=== PATIENT | male | born 1990 | race African-American/Black ===

== ENCOUNTER 2017-09-20 16:12 | Emergency (ER) | payer SELFPAY ==
[~2017-09-20] VITALS: Ht 175.3 cm; Wt 67.3 kg
[2017-09-20 16:35] VITALS: Ht 175.3 cm; Wt 67.3 kg
[2017-09-20] MEDS ORDERED: TORADOL10 MG PO (18:14)
[2017-09-20 19:17] VITALS: BP 146/79
== END 2017-09-20 19:19 | disposition home or self-care (01) ==
LOC: D.ER 16:12
DX: S93.401A Sprain of unspecified ligament of right ankle, initial encounter (principal); X50.1XXA Overexertion from prolonged static or awkward postures, initial encounter; Y93.67 Activity, basketball; Y92.019 Unspecified place in single-family (private) house as the place of occurrence of the external cause; F17.200 Nicotine dependence, unspecified, uncomplicated

== ENCOUNTER 2017-12-09 23:04 | Emergency (ER) | payer SELFPAY ==
[~2017-12-09] VITALS: Ht 175.3 cm; Wt 70.5 kg
[~2017-12-09 23:04] MED LIST: TORADOL10 MG PO
[2017-12-09 23:13] VITALS: Ht 175.3 cm; Wt 70.5 kg
[2017-12-10] MEDS ORDERED: ZOFRAN4 MG PO (00:10)
[2017-12-10 00:27] VITALS: BP 117/83
== END 2017-12-10 00:28 | disposition home or self-care (01) ==
LOC: D.ER 23:04
DX: R51 Headache (principal); R11.2 Nausea with vomiting, unspecified

== ENCOUNTER 2017-12-23 11:41 | Emergency (ER) | payer SELFPAY ==
[~2017-12-23] VITALS: Ht 175.3 cm; Wt 68.0 kg
[~2017-12-23 11:41] MED LIST changes: +ZOFRAN4 MG PO
[2017-12-23 11:48] VITALS: Ht 175.3 cm; Wt 68.0 kg
[2017-12-23] MEDS ORDERED: TORADOL10 MG PO (14:10)
[2017-12-23] MEDS ORDERED: OMNICEF300 MG PO (14:10)
[2017-12-23 17:17] VITALS: BP 112/078
== END 2017-12-23 17:18 | disposition home or self-care (01) ==
LOC: D.ER 11:41
DX: J01.90 Acute sinusitis, unspecified (principal)

== ENCOUNTER 2018-11-01 11:38 | Emergency (ER) | payer BC ==
[~2018-11-01] VITALS: Ht 175.3 cm; Wt 65.9 kg
[~2018-11-01 11:38] MED LIST changes: +OMNICEF300 MG PO
[2018-11-01 11:45] VITALS: Ht 175.3 cm; Wt 65.9 kg
[2018-11-01] MEDS ORDERED: AMOXICILLIN500 M1 PO (14:18)
[2018-11-01] MEDS ORDERED: PREDNISONE20 MG PO (14:18)
[2018-11-01 14:32] VITALS: BP 118/81
== END 2018-11-01 14:37 | disposition home or self-care (01) ==
LOC: D.ER 11:38
DX: J02.0 Streptococcal pharyngitis (principal)

== ENCOUNTER 2019-03-06 13:36 | Emergency (ER) | payer SELFPAY ==
[~2019-03-06] VITALS: Ht 175.3 cm; Wt 68.2 kg
[~2019-03-06 13:36] MED LIST changes: +AMOXICILLIN500 M1 PO; +PREDNISONE20 MG PO
[2019-03-06 14:18] VITALS: Ht 175.3 cm; Wt 68.2 kg
[2019-03-06] MEDS ORDERED: MUCINEX DM ER1 EAC1 PO (16:53)
[2019-03-06] MEDS ORDERED: AMOXICILLIN500 M1 PO (16:53)
[2019-03-06] MEDS ORDERED: STERAPRED DS 1010 MG PO (16:53)
[2019-03-06 17:16] VITALS: BP 138/90
== END 2019-03-06 17:21 | disposition home or self-care (01) ==
LOC: D.ER 13:36
DX: J06.9 Acute upper respiratory infection, unspecified (principal); J40 Bronchitis, not specified as acute or chronic; Z72.0 Tobacco use